=== PATIENT | female | born 1985 | race Caucasian/White ===

== ENCOUNTER 2017-03-15 02:34 | Emergency (ER) | payer MEDICAID ==
[~2017-03-15] VITALS: Ht 172.7 cm; Wt 65.9 kg
[2017-03-15 02:40] VITALS: BP 106/56; PULSE 86; TEMP 97.6; O2SAT 97
[2017-03-15 02:43] VITALS: BP 106/56; PULSE 86; RESP 15; TEMP 97.6
[2017-03-15] MEDS ORDERED: CEPHALEXIN MONOHYDRATE 500 MG CAP PO ONE (03:00)
[2017-03-15] MEDS ORDERED: CEPH-460 PO (03:42)
--- NOTE | 2017-03-15 03:46 | PD ---
HPI Chief Complaint: ENT Complaint Time Seen by Provider: 02:42 Travel History International Travel<30 days: No Contact w/Intl Traveler<30days: No Traveled to known affect area: No History of Present Illness HPI 31-year-old female presents to the emergency department for sinus pressure and right ear pain. Patient is 31 weeks . Patient has been using Benadryl and guaifenesin. And states she is taking acetaminophen prior to arrival to the emergency department. Patient presents here secondary to ear pain and sinus pressure pain states that she now is producing yellow-green drainage and has discontinued using systemic Sudafed at the recommendation of her ENDORSEMENT CLERK. Patient has had no abdominal pain no cramping and no report of vaginal bleeding or fluid leak. Patient's ear pain and sinus pain is 5/10 in intensity. PFSH Past Medical History Narrative Medical Earache Ab0 no tobacco use nursing notes reviewed Medical History: Denies Significant Hx Tetanus Vaccination: Unknown Influenza Vaccination: No ?: : 2 Para: 1 Past Surgical History Surgical History: No Previous Surgery Social History Alcohol Use: No Tobacco Use: No Substance Use: No Allergies-Medications (Allergen,Severity, Reaction): Coded Allergies: No Known Allergies (Unverified , 03/15/17) Reported Meds & Prescriptions Reported Meds & Active Scripts Active Keflex (Cephalexin) 500 Mg Capsule 500 Mg PO Q6H Narrative Medication vitamins Review of Systems Except as stated in HPI: all other systems reviewed are Neg Physical Exam Narrative GENERAL: Well-developed well-nourished female in no acute distress no respiratory distress SKIN: Warm and dry. HEAD: Normocephalic. EYES: No scleral icterus. No injection or drainage. ENT: Mucous membranes moist airway is patent sinuses tender to percussion over the right maxilla sinus bilateral tympanic membranes no redness or perforation right tympanic membrane is dull with fluid noted. NECK: Supple, trachea midline. No JVD or lymphadenopathy. CARDIOVASCULAR: Regular rate and rhythm without murmurs, gallops, or rubs. RESPIRATORY: Breath sounds equal bilaterally. No accessory muscle use. GASTROINTESTINAL: Abdomen soft, non-tender, nondistended. Gravid fundal height to the diaphragm. MUSCULOSKELETAL: No cyanosis, or edema. BACK: Nontender without obvious deformity. No CVA tenderness. Data Data Last Documented VS Vital Signs Date Time Temp Pulse Resp B/P (MAP) Pulse Ox O2 Delivery O2 Flow Rate FiO2 03/15/17 04:04 84 14 110/54 (72) 99 03/15/17 02:43 97.6 Orders Orders Heart Tones (03/15/17 02:53) Cephalexin (Keflex) (03/15/17 03:00) Ed Discharge Order (03/15/17 04:07) MDM Medical Decision Making Medical Screen Exam Complete: Yes Emergency Medical Condition: Yes Medical Record Reviewed: Yes Differential Diagnosis Otitis media otalgia sinusitis Narrative Course FHT: 171 Patient with bronchitis and stable for outpatient management will be started on oral antibiotic first dose of Keflex in the ED. Diagnosis Primary Impression: Sinusitis Qualified Codes: J01.90 - Acute sinusitis, unspecified Referrals: Net Developer Consultant call for appointment Patient Instructions: General Instructions Additional Instructions: Increase fluid hydration May use nasal spray with saline Follow-up with your ENDORSEMENT CLERK regarding additional medications that can be used [id number] regarding sinus congestion Complete course of antibiotic as prescribed Take acetaminophen/Tylenol as often as every 4 hours as needed for pain or for fever 100.4F or greater Return to the emergency department for any concerns or change in condition Med/Other Pt SpecificInfo: Prescription(s) given Scripts Cephalexin (Keflex) 500 Mg Capsule 500 MG PO Q6H for Infection, #28 CAP 0 Refills Prov: Michelle Cortes MD 03/15/17 Disposition: 01 DISCHARGE HOME Condition: Stable Michelle Cortes MD Mar 15, 2017 03:46
[2017-03-15 04:04] VITALS: BP 110/54
== END 2017-03-15 04:29 | disposition home or self-care (01) ==
LOC: PHED 02:34
DX: O26.893 Other specified pregnancy related conditions, third trimester (principal); J32.9 Chronic sinusitis, unspecified; Z3A.31 31 weeks gestation of pregnancy
CPT/HCPCS: 99283